=== PATIENT | male | born 1980 | race African-American/Black ===

== ENCOUNTER 2016-07-24 12:08 | Emergency (ER) | payer BC, OTHER ==
[2016-07-24] MEDS ORDERED: OXYCODONE-ACETAMINOPHEN 5-325 MG TABLET PO ONE ×2 (12:19→13:32)
[2016-07-24] MEDS ORDERED: DIPH/PERTUSS(ACELL)/TETANUS VAC/PF 0.5 ML SYR (>=10YO) IM ONE (12:19)
--- NOTE | 2016-07-24 12:20 | ER Document Report ---
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
[2016-07-24] MEDS ORDERED: LIDOCAINE 1% INJ-PF (10 MG/ML) 30 ML SDV INJ ONE (13:14)
[2016-07-24] MEDS ORDERED: CEPHALEXIN 500 MG CAPSULE PO ONE (13:28)
[2016-07-24] MEDS ORDERED: PROMETHAZINE HCL 25 MG TABLET PO ONE (13:32)
--- NOTE | 2016-07-24 14:56 | ER Document Report ---
ED Hand/Wrist Injury - General Chief Complaint: Laceration Stated Complaint: FINGER INJURY Mode of Arrival: Ambulatory Notes: Patient cut his left middle finger and also the ring finger with hedgers trimming vegetation this afternoon, just prior to coming to the emergency department.. Main injuries to the left middle finger with a less severe laceration of the left fourth finger. Patient is left hand dominant. Denies any other injuries. Not up-to-date on tetanus shot. TRAVEL OUTSIDE OF THE [place] IN LAST 30 DAYS: No - Related Data Allergies/Adverse Reactions: No Known Allergies Allergy (Verified 07/24/16 12:19) Past Medical History - General Information source: Patient - Social History Smoking Status: Current Every Day Smoker Cigarette use (# per day): Yes Chew tobacco use (# tins/day): No Frequency of alcohol use: Occasional Drug Abuse: None Family History: None Patient has suicidal ideation: No Patient has homicidal ideation: No - Medical History Medical History: Negative - Immunizations Hx Diphtheria, Pertussis, Tetanus Vaccination: - less than 5 yrs Review of Systems - Review of Systems Constitutional: denies: Fever Cardiovascular: denies: Chest pain Respiratory: denies: Cough, Short of breath, Wheezing Physical Exam - Vital signs Vitals: Temp Pulse Resp BP Pulse Ox 98.2 F 112 H 20 174/117 H 96 07/24/16 12:16 07/24/16 12:16 07/24/16 12:16 07/24/16 12:16 07/24/16 12:16 Interpretation: Hypertensive - Mild, Tachycardic - Mild - Notes Notes: PHYSICAL EXAMINATION: GENERAL: Well-appearing. Vital signs show slight tachycardia and elevation of blood pressure but otherwise normal. HEAD: Atraumatic, normocephalic. LUNGS: Breath sounds clear and equal bilaterally. HEART: Regular rate and rhythm without murmurs. ABDOMEN: Soft, nontender. No guarding or rebound. EXTREMITIES: Normal range of motion without pain. Patient has a major injury to the distal left middle finger. Almost all of the dorsal aspect of the finger is opened up exposing deep subcutaneous tissue. A middle portion of the fingernail is missing, while the distal nail is still attached to a portion of the nailbed that still present. Proximal origin of the nail is intact. Lacerations extend around on the radial side of the nailbed to the palmar aspect of the of that finger. There is approximately 5 additional centimeters of laceration in this area.Tip of finger is pink and can feel me touching there with needle prick. NEUROLOGICAL: Normal speech, normal gait. Normal sensory, motor, and reflex exams. Awake, alert, and oriented x3. Cranial nerves normal. PSYCH: Normal mood, normal affect. SKIN: Warm, dry, no rashes. Patient has a laceration at the tip of the left fourth/ring finger that's about 2 cm in length. Ring finger neurovasc intact. Total cumulative laceration length about 7 cm. Course - Re-evaluation Re-evalutation: 07/24/16 21:11 Patient was given a gram of Keflex by mouth in the emergency department. 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 - Vital Signs Vital signs: Temp Pulse Resp BP Pulse Ox 98.2 F 80 18 155/98 H 99 07/24/16 12:16 07/24/16 15:22 07/24/16 15:22 07/24/16 15:22 07/24/16 15:22 - Diagnostic Test Radiology reviewed: Image reviewed, Reports reviewed Radiology results interpreted by me: 07/24/16 21:11 Significant fracture and loss of some of the midportion of the distal phalanx of the left middle finger. Procedures - Laceration/Wound Repair Left 3rd digit Wound length (cm): 7 - combined Wound's Depth, Shape: Into muscle - likely, Irregular, Stellate, Nail-avulsed, Contused tissue. No: Superficial Laceration pre-procedure: Sterile drapes applied Anesthetic type: 1% Lidocaine Volume Anesthetic (mLs): 8 Wound explored: Clean, No foreign body removed Wound Debrided: the remaining nail distally was removed. Wound Repaired With: Sutures Suture Size/Type: 5:0, Ethilon Number of Sutures: 12 - total combined count Layer Closure?: No Post-procedure wound care: Sterile dressing applied Post-procedure NV exam normal: No - unable to determine because of the extensiveness of the injury and the inje Notes: 07/24/16 21:16 A distal metacarpal block was performed on the middle finger. The wound was cleansed with surgical cleanser. Then, the distal finger was flushed and irrigated with 2 L of saline. Distal nail fragment was removed from the portion of the nailbed remaining to which it was attached. There is also a strip across the middle of the nailbed that had a small piece of nail on it that was removed as well. Then, I tried to reposition all the tissue in its most normal alignment and sutured it in place with 5-0 nylon suture. The lacerations of the distal middle finger and nailbed required 10 sutures. The laceration at the tip of the fourth finger required 2 sutures. Patient is being referred to hand surgeon, to call Tuesday morning for follow-up as soon as possible. Explained to the patient that his nailbed is missing a significant amount of tissue and may result in an abnormal appearing nail once it grows out. Hopefully it won't get infected during this early part of the healing process. Hands back picture: 1 - Almost complete avulsion of the distal nailbed and overlying nail. Hands front picture: 1 - 2 cm lacerations closed with nylon suture Discharge - Discharge Clinical Impression: Fracture of distal phalanx of finger of left hand, Laceration of left middle finger with complication Condition: Stable Disposition: HOME, SELF-CARE Additional Instructions: Fractured Finger There is a fracture in your finger. The bone is straight and in good position to heal. The doctor has assessed the seriousness of the fracture and has explained your treatment plan. Usually the finger will be splinted until fracture healing is complete. This is usually about three or four weeks. At that time, the injured finger may be taped to the next finger to provide a moving splint for longer protection. The first few days after the injury, the finger should be kept elevated and cold (with ice packs). This decreases the swelling and pain. You should contact the doctor or return at once if pain or swelling become severe, or if the finger becomes numb. Some degree of bruising is normal with a finger fracture. LACERATION CARE: Your laceration has been sutured to keep the skin edges aligned during healing. The time of suture removal depends on the nature and location of your cut. Please follow the care instructions the doctor has outlined for you and return for further care, according to the schedule you've been given. Keep the wound and dressing clean. Unless you were told otherwise, you may shower daily, blotting the wound dry with a clean, unused towel. At other times, If the dressing gets wet or blood soaked, remove it and blot the wound dry, then reapply a new dressing. Unless you were instructed otherwise, dressings should be changed at least daily. If any signs of infection occur (swelling, redness, drainage, increasing tenderness, red streaks, tender lumps in the armpit or groin above the laceration, or fever), see the doctor immediately. You do not need to remove the bandage at this time. If you are unable to see the hand surgeon on Tuesday, then change the bandage yourself. Put her hand in shower water and let it run on to the bandages for a couple of minutes to loosen up and separate the bandages from any dry blood around the finger. Elevate your hand as much as possible for the next 2-3 days. SOAP CLEANSING: Gently wash the wound daily using a mild soap (like Ivory, Phisoderm, Neutrogena). Use warm water, rubbing gently until all debris, ooze, and crusting have been washed from the wound. Allow to dry briefly (about 10 minutes) after cleaning. Repeat this cleansing at least three times a day for the first two days and then once or twice a day. ANTIBIOTIC OINTMENT PROTECTION: Your wounds are such that dressing them is not practical or optional. After cleansing, you should apply a thin coating of antibiotic ointment ( Bacitracin, not Neosporin) to the wounds at least three times daily. This lessens infection risk, and may decrease the amount of scarring. Use a q-tip or dull butter knife, not your finger, to apply this ointment. Any debris or ooze which builds up in the ointment should be gently rubbed off with a sterile gauze pad. Harder crusting may need to be gently scrubbed off with a clean wash cloth with soap and warm water, perhaps applying a warm, wet wash cloth to the wound for ten minutes first. Development of redness, severe itching, or blistering may mean allergy to the ointment. See the doctor. TETANUS IMMUNIZATION GIVEN: You have been given an immunization against tetanus. Please record this in your records. In general, a booster is needed only once every 10 years. The tetanus shot protects against tetanus or "lockjaw," which is a complication of certain wound infections (the tetanus shot cannot protect against the actual infection). The immunization site may become warm and red due to local reaction. If this occurs, apply warm compresses and take aspirin or ibuprofen to reduce inflammation and discomfort. Return for evaluation if the reaction becomes severe. PROPHYLACTIC ANTIBIOTIC: The antibiotics which have been prescribed are designed to decrease the risk of infection. Only certain types of wounds benefit from this -- the typical cut, scrape, or burn DOES NOT require antibiotics. Of course, infection can still occur despite the use of prophylactic antibiotics. Your wound will heal with less chance of an infectious complication if you take the medication as directed. The most important dose is the FIRST dose, so don't delay filling the prescription! ORAL NARCOTIC MEDICATION: You have been given a prescription for pain control. This medication is a narcotic. It's best taken with food, as nausea can result if taken on an empty stomach. Don't operate machinery or drive within six hours of taking this medication. Do not combine this medicine with alcohol, or with any medication which can cause sedation (such as cold tablets or sleeping pills) unless you get permission from the physician. Narcotics tend to cause constipation. If possible, drink plenty of fluids and eat a diet high in fiber and fruits. FOLLOW-UP CARE: Your sutures should be removed in 7 days. To facilitate a timely removal of your sutures, you may return to the Emergency Department at [facility]. You do not need to call for an appointment, but the best time to come in for suture removal is early in the morning. If you have been referred to another physician for follow-up care, call that physicians office for an appointment as you were instructed. If you experience a significant change in your laceration, or if you are concerned there may be an infection (swelling, redness, drainage, increasing tenderness, red streaks, tender lumps in the armpit or groin above the laceration, or fever) , return to the Emergency Department immediately re-evaluation. Call Dr. Wilde's office early Tuesday morning to arrange an appointment to see him Tuesday or Tuesday in his office. If you are unable to get into an appointment to see him on Tuesday or Tuesday, call me at the numbers provided so I can try to make arrangements for you to be seen. Prescriptions: Cephalexin [Keflex] 500 mg PO TID #10 capsule Oxycodone HCl/Acetaminophen [Percocet 5-325 mg Tablet] 1 - 2 tab PO Q4H PRN #25 tablet PRN Reason: Promethazine HCl [Phenergan 25 mg Tablet] 1 - 2 tab PO Q6H PRN #15 tablet PRN Reason: Forms: Return to Work Referrals: GAURI WILDE DO [ACTIVE STAFF] - 07/26/16
[2016-07-24 15:23] VITALS: BP 155/98
== END 2016-07-24 15:15 | disposition home or self-care (01) ==
LOC: ER 12:08
PROC: 0HQGXZZ Repair Left Hand Skin, External Approach (ICD-10-PCS; principal; 2016-07-24)
DX: S62.633B Displaced fracture of distal phalanx of left middle finger, initial encounter for open fracture (principal); S61.215A Laceration without foreign body of left ring finger without damage to nail, initial encounter; W29.3XXA Contact with powered garden and outdoor hand tools and machinery, initial encounter; Y93.H2 Activity, gardening and landscaping; F17.210 Nicotine dependence, cigarettes, uncomplicated; R00.0 Tachycardia, unspecified
CPT/HCPCS: 99283; 90471; 73130; 90715; 12002; J3490

== ENCOUNTER 2017-08-12 07:42 | Emergency (ER) | payer BC, OTHER ==
[2017-08-12] MEDS ORDERED: KETOROLAC TROMETHAMINE INJ/PF 30 MG/1 ML SDV IV ONE (08:07)
[2017-08-12] MEDS ORDERED: CEFTRIAXONE INJ 1000 MG VIAL IV ONE (08:07)
--- NOTE | 2017-08-12 08:08 | ER Document Report ---
ED General - General Chief Complaint: Knee Pain Stated Complaint: LEFT KNEE PAIN Mode of Arrival: Ambulatory Information source: Patient TRAVEL OUTSIDE OF THE [place] IN LAST 30 DAYS: No - HPI Notes: 36 yr male presents today with complaints of left knee pain and swelling x 1 day ago after he hit his knee on the end of his bed post. Pain 6/10, throbbing and constant. Tried otc motrin without full relief. reports chills, denies fever. Reports some swelling. Has not tried any icing. denies previous injury of knee. Unable to bear full weight. Denies any n/t in affected limb. Worse with ambulation, better when at rest. denies hitting head or change in loc. Denies fevers, chills, chest pain,palpitations, shortness of breath, dyspnea, nausea, vomiting, diarrhea, abdominal pain, hematuria,blurred vision, double vision, loss of vision, speech changes, LH, dizziness, syncope, headaches , wheezing, ST, URI, neck pain, weakness, bowel or bladder dysfunction, saddle anesthesia, numbness or tingling in bilateral upper or lower extremities equally , muscle paralysis, weakness in bilateral upper or lower extremities equally or rash. Denies IV drug use. - Related Data Allergies/Adverse Reactions: Fish Containing Products Allergy (Severe, Verified 08/12/17 07:46) Anaphylaxis Past Medical History - General Information source: Patient - Social History Smoking Status: Unknown if Ever Smoked Family History: Reviewed & Not Pertinent Patient has suicidal ideation: No Patient has homicidal ideation: No - Past Medical History Cardiac Medical History: Reports: Hx Hypertension Renal/ Medical History: Denies: Hx Peritoneal Dialysis - Immunizations Hx Diphtheria, Pertussis, Tetanus Vaccination: - less than 5 yrs Review of Systems - Review of Systems Constitutional: No symptoms reported EENT: No symptoms reported Cardiovascular: No symptoms reported Respiratory: No symptoms reported Gastrointestinal: No symptoms reported Genitourinary: No symptoms reported Male Genitourinary: No symptoms reported Musculoskeletal: See HPI Skin: No symptoms reported Hematologic/Lymphatic: No symptoms reported Neurological/Psychological: No symptoms reported Physical Exam - Vital signs Vitals: Temp Pulse Resp BP Pulse Ox 99.3 F 105 H 16 155/90 H 98 08/12/17 07:53 08/12/17 07:53 08/12/17 07:53 08/12/17 07:53 08/12/17 07:53 - Notes Notes: PHYSICAL EXAMINATION: GENERAL: Well-appearing, well-nourished and in no acute distress. HEAD: Atraumatic, normocephalic. EYES: Pupils equal round and reactive to light, extraocular movements intact, sclera anicteric, conjunctiva are normal. ENT: Nares patent, oropharynx clear without exudates. Moist mucous membranes. NECK: Normal range of motion, supple without lymphadenopathy LUNGS: Breath sounds clear to auscultation bilaterally and equal. No wheezes rales or rhonchi. HEART: Regular rate and rhythm without murmurs ABDOMEN: Soft, nontender, nondistended abdomen. No guarding, no rebound. No masses appreciated. Musculoskeletal: Normal range of motion, no pitting or edema. No cyanosis. left knee pain with palpation to lateral aspect of knee and noted swelling around joint. negative jez's sign. anterior and posterior drawer test negative.Dtr + 2 in BLE. Full motor and sensory function to BLE equally. strength 5/5 in BLE equally. Negative lachmans test and posterior/anterior drawer test. No open wounds. Noted induration, warmth to touch around the knee joint. no drainage. pulses + 2 bilaterally and equally. NEUROLOGICAL: Cranial nerves grossly intact. Normal speech, normal gait. Normal sensory, motor exams PSYCH: Normal mood, normal affect. SKIN: Warm, Dry, normal turgor, no rashes or lesions noted. Course - Re-evaluation Re-evalutation: 08/12/17 11:00 A healthy 36-year-old male presents today with left knee cellulitis, noted leukocytosis of 24 with a lactic of 1.1. We will try outpatient oral antibiotic therapy since patient otherwise is healthy. Electrolytes, renal and liver function unremarkable. Left knee x-ray shows patient had a cellulitis, no other findings such as osteomyelitis, fracture, dislocation or foreign body. pt given 1 g of Rocephin IV. Patient is not in any distress, is stating his pain is controlled, can tolerate outpatient antibiotic therapy. Will give patient crutches, advised to elevate, apply warm compress 20 minutes on 20 minutes off several times a day, take clihdamycin and Keflex as directed, if redness extends outside of marked area to return to the emergency room for any of IV antibiotics and admission. If any symptoms become worse to return to the emergency room as soon as possible. All questions and concerns answered by this provider. Patient stated he felt comfortable to go home. Patient was discharged home. 08/12/17 11:00 After performing a Medical Screening Examination, I estimate there is LOW risk for OPEN FRACTURE, COMPARTMENT SYNDROME, TENDON RUPTURE, ACUTE NEUROVASCULAR INJURY, or RETAINED FOREIGN BODY, thus I consider the discharge disposition reasonable. Also, there is no evidence or peritonitis, sepsis, or toxicity. I have reevaluated this patient multiple times and no significant life threatening changes are noted. The patient and I have discussed the diagnosis and risks, and we agree with discharging home with close follow-up with the understanding that symptoms and presentations can change. We also discussed returning to the Emergency Department immediately if new or worsening symptoms occur. We have discussed the symptoms which are most concerning (e.g., changing or worsening pain, fever, numbness, weakness, cool or painful digits) that necessitate immediate return. - Vital Signs Vital signs: Temp Pulse Resp BP Pulse Ox 99.0 F 86 18 137/86 H 100 08/12/17 10:41 08/12/17 10:41 08/12/17 10:41 08/12/17 10:41 08/12/17 10:41 - Laboratory Result Diagrams: 08/12/17 08:22 08/12/17 08:22 Laboratory results interpreted by me: 08/12/17 08/12/17 08:22 08:22 WBC 24.0 H Seg Neuts % (Manual) 82 H Lymphocytes % (Manual) 9 L Abs Neuts (Manual) 19.7 H Abs Monocytes (Manual) 2.2 H Glucose 113 H C-Reactive Protein 56.9 H Discharge - Discharge Clinical Impression: Cellulitis of left knee Condition: Good Disposition: HOME, SELF-CARE Instructions: Use of Crutches ([facility]), Ice & Elevation ([facility]) Additional Instructions: Cellulitis You have an infection of your skin and underlying soft tissues called cellulitis. This is due to bacteria, which can enter through any break in the skin, or even through an irritated hair follicle. Untreated, cellulitis will usually worsen. Antibiotics are required. Usually, warm packs or warm soaks, and elevation of the infected area are recommended. You should start getting better within 24 to 36 hours. Most infections respond quickly to the right medication. Follow-up care is important, however, to check for abscess (boil) formation, unsuspected foreign body, or resistant infection. If you develop fever, chills, or if the area of infection is becoming rapidly more swollen or painful, call the doctor at once. Take oral clindamycin and Keflex as directed. Warm compress to site 20 minutes on 20 minutes off several times a day. Keep elevated. Follow-up with primary care within 24 hours. If redness extends out of marked area, return to the emergency room right away. Return immediately for any new or worsening symptoms. Follow up with primary care provider, call tomorrow to make followup appointment. Prescriptions: Cephalexin Monohydrate [Keflex 500 mg Capsule] 500 mg PO BID #10 capsule Clindamycin HCl 300 mg PO Q6H #28 capsule Referrals: AARON ANAND MD [ACTIVE STAFF] - Follow up in 3-5 days KEVIN DEWITT MD [ACTIVE STAFF] - Follow up in 3-5 days
[2017-08-12 08:42] LABS: HEMOGLOBIN 14.6 g/dL (13.5-17.0); MEAN CORPUSCULAR HEMOGLOBIN 28.1 pg (27.0-33.4); MEAN CORPUSCULAR HGB CONC 33.2 g/dL (32.0-36.0); MEAN CORPUSCULAR VOLUME 85 fl (80-97); PLATELET COUNT 300 10^3/uL (150-450); RED BLOOD COUNT 5.19 10^6/uL (4.35-5.55); RED CELL DISTRIBUTION WIDTH 13.4 % (11.5-14.0)
[2017-08-12 09:01] LABS: ALANINE AMINOTRANSFERASE 32 U/L (21-72); ALBUMIN 4.6 g/dL (3.5-5.0); ALKALINE PHOSPHATASE 68 U/L (38-126); ANION GAP 10 (5-19); ASPARTATE AMINO TRANSFERASE 23 U/L (17-59); BILIRUBIN,DIRECT 0.3 mg/dL (0.0-0.4); BILIRUBIN,TOTAL 0.7 mg/dL (0.2-1.3); BLOOD UREA NITROGEN 11 mg/dL (7-20); C-REACTIVE PROTEIN 56.9 mg/L (<10.0); CALCIUM 9.7 mg/dL (8.4-10.2); CARBON DIOXIDE 26 mmol/L (22-30); CHLORIDE 103 mmol/L (98-107); GLUCOSE 113 mg/dL (75-110); POTASSIUM 3.8 mmol/L (3.6-5.0); SODIUM 138.6 mmol/L (137-145); TOTAL PROTEIN 7.8 g/dL (6.3-8.2); URIC ACID 5.4 mg/dL (3.5-8.5)
--- NOTE | 2017-08-12 09:06 | RADIOLOGY REPORT (SQ) ---
EXAM DESCRIPTION: KNEE LEFT 4 VIEW COMPLETED DATE/TIME: 08/12/2017 8:52 am REASON FOR STUDY: +fever, +erythema, +warm, +swelling COMPARISON: None. NUMBER OF VIEWS: 5 views. TECHNIQUE: AP, lateral, and both oblique radiographic images acquired of the left knee. LIMITATIONS: None. FINDINGS: MINERALIZATION: Normal. BONES: No acute fracture or dislocation. No worrisome bone lesions. JOINT: No effusion. SOFT TISSUES: Marked soft tissue swelling extending from the level of the patella inferiorly in the p repatellar soft tissues consist at with cellulitis or prepatellar bursitis. OTHER: No other significant finding. IMPRESSION: Changes consistent with prepatellar bursitis or cellulitis. Otherwise, normal left knee . . TECHNICAL DOCUMENTATION: JOB ID: [id number] [employer]- All Rights Reserved
[2017-08-12 09:13] LABS: ABSOLUTE LYMPHOCYTES# (MANUAL) 2.2 10^3/uL (0.5-4.7); ABSOLUTE MONOCYTES # (MANUAL) 2.2 10^3/uL (0.1-1.4); ABSOLUTE NEUTROPHILS# (MANUAL) 19.7 10^3/uL (1.7-8.2); BASOPHILS % (MANUAL) 0 % (0-2); EOSINOPHILS % (MANUAL) 0 % (0-6); LYMPHOCYTES % (MANUAL) 9 % (13-45); MONOCYTES % (MANUAL) 9 % (3-13); SEGMENTED NEUTROPHILS % (MAN) 82 % (42-78); TOTAL CELLS COUNTED 100
[2017-08-12 09:14] LABS: PLATELET COMMENT ADEQUATE; RBC MORPHOLOGY COMMENT NORMO-CYTIC/CHROMIC
[2017-08-12 09:19] LABS: ERYTHROCYTE SEDIMENTATION RATE 5 mm/hr (0-15)
[2017-08-12] MEDS ORDERED: HYDROCODONE/ACETAMINOPHEN 5-325 MG (6 TAB/ER DISP) PO PRN (10:25)
[2017-08-12 10:47] VITALS: BP 137/86
== END 2017-08-12 10:47 | disposition home or self-care (01) ==
LOC: ER 07:42
DX: L03.116 Cellulitis of left lower limb (principal); M25.562 Pain in left knee; M79.89 Other specified soft tissue disorders
CPT/HCPCS: 99283; 96375; 96365; 36415; 87040; 84550; 85025; 85652; 86140; 80053; 83605; 73562; J1885; J0696

== ENCOUNTER 2017-08-18 12:56 | Day surgery (SDC) | payer BC ==
[~2017-08-18 12:56] MED LIST: CEFAZOLIN 2 GM/D5W RTU 2 GM/50 ML RTUPB IV ONE; CEFAZOLIN SODIUM 2 GM in NORMAL SALINE 100 ML IV PRN
[2017-08-18 13:46] LABS: ABSOLUTE BASOPHILS # (AUTO) 0.1 10^3/uL (0.0-0.2); ABSOLUTE EOSINOPHILS # (AUTO) 0.1 10^3/uL (0.0-0.6); ABSOLUTE LYMPHOCYTES (AUTO) 1.9 10^3/uL (0.5-4.7); ABSOLUTE MONOCYTES (AUTO) 0.8 10^3/uL (0.1-1.4); ABSOLUTE NEUT (AUTO) 8.3 10^3/uL (1.7-8.2); BASOPHILS % (AUTO) 0.7 % (0-2); EOSINOPHILS % (AUTO) 0.7 % (0-6); HEMATOCRIT 41.8 % (37.9-51.0); LYMPHOCYTES % (AUTO) 17.3 % (13-45); MEAN CORPUSCULAR HEMOGLOBIN 28.1 pg (27.0-33.4); MEAN CORPUSCULAR HGB CONC 33.5 g/dL (32.0-36.0); MEAN CORPUSCULAR VOLUME 84 fl (80-97); MONOCYTES % (AUTO) 6.8 % (3-13); PLATELET COUNT 404 10^3/uL (150-450); RED BLOOD COUNT 4.98 10^6/uL (4.35-5.55); RED CELL DISTRIBUTION WIDTH 13.3 % (11.5-14.0); SEGMENTED NEUTROPHILS % (AUTO) 74.5 % (42-78); TOTAL CELLS COUNTED % (AUTO) 100 %; WHITE BLOOD COUNT 11.1 10^3/uL (4.0-10.5)
--- NOTE | 2017-08-18 13:49 | RADIOLOGY REPORT (SQ) ---
EXAM DESCRIPTION: CHEST SINGLE VIEW COMPLETED DATE/TIME: 08/18/2017 1:30 pm REASON FOR STUDY: PREOP COMPARISON: 07/02/2011. EXAM PARAMETERS: NUMBER OF VIEWS: One view. TECHNIQUE: Single frontal radiographic view of the chest acquired. RADIATION DOSE: NA LIMITATIONS: None. FINDINGS: LUNGS AND PLEURA: No opacities, masses or pneumothorax. No pleural effusion. MEDIASTINUM AND HILAR STRUCTURES: No masses. Contour normal. HEART AND VASCULAR STRUCTURES: Heart normal in size. Normal vasculature. BONES: No acute findings. HARDWARE: None in the chest. OTHER: No other significant finding. IMPRESSION: NO ACUTE RADIOGRAPHIC FINDING IN THE CHEST. TECHNICAL DOCUMENTATION: JOB ID: [id number] [[id number]]- All Rights Reserved Reading location - IP/workstation name: [email or web address]
[2017-08-18 14:03] LABS: ANION GAP 10 (5-19); BLOOD UREA NITROGEN 13 mg/dL (7-20); CALCIUM 9.7 mg/dL (8.4-10.2); CARBON DIOXIDE 25 mmol/L (22-30); CHLORIDE 107 mmol/L (98-107); GLUCOSE 94 mg/dL (75-110); POTASSIUM 4.2 mmol/L (3.6-5.0); SODIUM 142.1 mmol/L (137-145)
[2017-08-18 14:08] LABS: APPEARANCE,URINE CLEAR; BILIRUBIN,URINE NEGATIVE (NEGATIVE); COLOR,URINE YELLOW; GLUCOSE, URINE NEGATIVE (NEGATIVE); KETONES,URINE NEGATIVE (NEGATIVE); LEUKOCYTE ESTERASE,URINE NEGATIVE (NEGATIVE); NITRITE,URINE NEGATIVE (NEGATIVE); PROTEIN,URINE NEGATIVE (NEGATIVE); URINE SPECIFIC GRAVITY 1.019; UROBILINOGEN,URINE NEGATIVE mg/dL (<2.0)
[2017-08-18] MEDS ORDERED: KETAMINE HCL INJ 500 MG/10 ML VIAL ONE (15:15)
[2017-08-18] MEDS ORDERED: LIDOCAINE 2% INJ-PF (20 MG/ML) 10 ML AMPUL ONE (15:15)
[2017-08-18] MEDS ORDERED: ACETAMINOPHEN 0 ML IV ONE (15:16)
[2017-08-18] MEDS ORDERED: PROPOFOL INJ 200 MG/20 ML VIAL IV ONE (15:16)
[2017-08-18] MEDS ORDERED: FENTANYL CITRATE INJ/PF 100 MCG/2 ML AMPUL ONE ×2 (15:16)
[2017-08-18] MEDS ORDERED: MIDAZOLAM 2 MG/2 ML INJ ONE (15:16)
[2017-08-18] MEDS ORDERED: BUPIVACAINE HCL 0.25 % INJ/PF (2.5 MG/1 ML) 30 ML VIAL ONE (15:53)
[2017-08-18] MEDS ORDERED: MORPHINE SULFATE 10 MG/ML INJ IV PRN (16:06)
[2017-08-18] MEDS ORDERED: DIPHENHYDRAMINE HCL 50 MG/ML VIAL IV PRN (16:06)
[2017-08-18] MEDS ORDERED: OXYCODONE-ACETAMINOPHEN 5-325 MG TABLET PO PRN ×4 (16:06→16:32)
[2017-08-18] MEDS ORDERED: PROMETHAZINE HCL INJ 25 MG/1 ML VIAL IV PRN ×2 (16:06)
[2017-08-18] MEDS ORDERED: MEPERIDINE HCL/PF INJ 25 MG/1 ML DISP.SYRIN IV PRN (16:06)
[2017-08-18] MEDS ORDERED: FENTANYL CITRATE INJ/PF 100 MCG/2 ML AMPUL IV PRN ×3 (16:06)
--- NOTE | 2017-08-18 16:28 | Operative Report ---
Operative Report DATE OF SURGERY: 08/18/17 PREOPERATIVE DIAGNOSIS: infectious left prepatellar bursitis POSTOPERATIVE DIAGNOSIS: Same OPERATION: I&D and left prepatellar bursectomy SURGEON: KEVIN MCCLAIN ANESTHESIA: LMAC TISSUE REMOVED OR ALTERED: Prepatellar bursal tissue COMPLICATIONS: None ESTIMATED BLOOD LOSS: 20 mL INTRAOPERATIVE FINDINGS: As above PROCEDURE: Patient was brought to the operating room and was sedated through the IV. A thigh tourniquet was applied to the left lower extremity. The left lower extremity was prepped and draped in a normal sterile surgical fashion. Timeout was done identifying the left prepatellar bursa as the correct site. Quarter percent Marcaine was injected in the anticipated incision. Extremity was elevated and the tourniquet was inflated at 280 mmHg. A 3 inch incision midline to the prepatellar bursal tissue was done and electrocautery was used to establish hemostasis. The bursal tissue was scarred down to skin and I need to use a Metzenbaum scissors to then separate the bursal tissue off of the underlying dermis. Neck was done and purulent fluid was expressed mixed with blood. Cultures were taken. Irrigation was done. Further dissection of the bursal tissue was done and resected. Also satisfied with the resection and the irrigation proceeded then to place 0 PDS to approximate the dermal tissue and then applied a Fernando drain. I used 3-0 nylon to then close the skin. Xeroform was applied followed by 4 x 4 dressing and then a soft roll. This was overwrapped with an Durga bandage. Drapes were removed and the tourniquet was let down at 21 minutes. Tourniquet was removed and then the patient was then transferred to PACU in a stable condition.
--- NOTE | 2017-08-18 16:32 | Discharge Summary ---
Discharge Summary (SDC) - Discharge Final Diagnosis: Infectious left prepatellar bursitis Date of Surgery: 08/18/17 Discharge Date: 08/18/17 Condition: Good Treatment or Instructions: Keep the dressing dry clean and intact for 4 days. Remove the [place] once dressing is removed in 4 days. Reapply the dressing daily. Follow-up in 1 week. Discharge with antibiotics. Weight-bear as tolerated and range of motion as tolerated Prescriptions: Oxycodone HCl/Acetaminophen [Percocet 5-325 mg Tablet] 1 tab PO ASDIR PRN #25 tab PRN Reason: Sulfamethoxazole/Trimethoprim [Bactrim Ds Tablet] 1 each PO BID #14 tablet Discharge Diet: As Tolerated Respiratory Treatments at Home: Deep Breathing/Coughing Discharge Activity: No Driving, No Lifting/Push/Pulling, Slowly Increase Activity, Walk Frequently Report the Following to Your Physician Immediately: Shortness of Breath, Vomiting, Increase in Pain, Fever over 101 Degrees, Unusual Bleeding, Redness, Swelling, Warmth, Increased Soreness, Drainage-Yellow, Drainage-[place], Drainage- Green, Drainage-Foul Smelling
--- NOTE | 2017-08-18 18:16 | EKG REPORT ---
SEVERITY:- ABNORMAL ECG - SINUS RHYTHM PROBABLE LEFT VENTRICULAR HYPERTROPHY : Confirmed by: Robby Hernandez MD 18-Aug-2017 18:15:38
[2017-08-18 18:29] VITALS: BP 152/90
== END 2017-08-18 17:50 | disposition home or self-care (01) ==
LOC: OROUT 12:56
PROVIDERS: ATTEND Orthopaedic Surgery
PROC: 0MTP0ZZ Resection of Left Knee Bursa and Ligament, Open Approach (ICD-10-PCS; principal; 2017-08-18 15:00)
DX: M70.42 Prepatellar bursitis, left knee (principal); I10 Essential (primary) hypertension; F17.210 Nicotine dependence, cigarettes, uncomplicated
CPT/HCPCS: 36415; 87070; 87205; 85025; 87075; 87077; 80048; 81001; 88304 ×2; 71045; 93005; 93010; 27340; J2250; J3010; J3490 ×2; J2704; J0690; 1320; J0131